=== PATIENT | male | born 1955 | race Caucasian/White ===

== ENCOUNTER → 2018-08-14 | Outpatient (CLI) | payer MEDICARE ==
[~2018-08-14] MED LIST: ALBUTEROL SULF8.5 GM INH; AMBIEN10 MG PO; DURAGESIC1 EAC1 TOP; GERD MEDICATION PO; SYMBICORT 80-10.2 GM INH
--- NOTE | 2018-08-14 14:37 | Diagnostic Imaging Report ---
MRI SPINE CERVICAL WO HISTORY: Weakness in upper extremities COMPARISON: None. TECHNIQUE: Sagittal T1, sagittal T2, sagittal inversion recovery, axial T2 and axial T1 weighted MR images of the cervical spine were obtained without intravenous contrast. DISCUSSION: Alignment: Normal lordosis. No scoliosis. Vertebrae: No definite evidence for fractures, infection, or neoplasm. Cervicomedullary junction: No abnormalities. Spinal cord: The ventral cord is mildly flattened by disc centrally at C5-C6 and on the left at C6-C7. There is questionable mild central cord T2 hyperintensity at C4-C5 and C6-C7 without cord expansion or volume loss. The cord is otherwise normal in signal and morphology from the foramen magnum through T3-T4. 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 Mild to moderate multilevel disc degeneration is most prominent at C5-C6 and C6-C7. This is superimposed on a congenitally narrow cervical spinal canal. Mild atlantoaxial arthrosis is present as well. C2-C3: Mild left foraminal stenosis due to uncovertebral and facet arthrosis. No significant canal or right foraminal stenosis. C3-C4: Moderate canal stenosis due to posterior disc osteophyte complex and ligamentum flavum thickening. Mild to moderate bilateral foraminal stenoses due to uncovertebral and facet arthrosis. C4-C5: Moderate canal stenosis due to posterior disc osteophyte complex and ligamentum flavum thickening. Moderate to severe bilateral foraminal stenoses due to uncovertebral and facet arthrosis. C5-C6: Moderate to severe canal stenosis due to posterior disc osteophyte complex and ligamentum flavum thickening. Severe bilateral foraminal stenoses due to uncovertebral and facet arthrosis. C6-C7: Moderate canal stenosis due to posterior disc osteophyte complex, eccentric to the left, and ligamentum flavum thickening. Moderate right and severe left foraminal stenoses due to uncovertebral and facet arthrosis. C7-T1: Patent canal and foramina. IMPRESSION: 1. Mild to moderate multilevel disc degeneration, most prominent at C5-C6 and C6-C7, superimposed on a congenitally narrow cervical spinal canal. 2. 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 Questionable associated mild central cord T2 hyperintensity at C4-C5 and C6-C7 may be due to minimal edema or gliosis. 3. Multilevel bilateral moderate to severe degenerative foraminal stenoses as described above. Signed by: Dr. Marc Verma M.D. on 08/14/2018 2:33 PM
== END ==
LOC: MRI 10:44
PROVIDERS: ATTEND Family Medicine
DX: R29.898 Other symptoms and signs involving the musculoskeletal system (principal); M47.812 Spondylosis without myelopathy or radiculopathy, cervical region; R20.2 Paresthesia of skin
CPT/HCPCS: 72141

== ENCOUNTER 2024-06-10 07:25 | Observation (INO) | payer BC, MEDICARE ==
[2024-06-09 09:07] LABS: BASOPHILS # (AUTO) 0.1 (0.0-0.1); BASOPHILS % 0.7 % (0.0-1.0); HEMATOCRIT 45.3 % (38.2-49.6); HEMOGLOBIN 14.7 g/dL (14.0-18.0); LYMPHOCYTES # (AUTO) 1.3 (1.0-3.2); MEAN CORPUSCULAR HEMOGLOBIN 33.3 pg (28-32); MEAN CORPUSCULAR HGB CONC 32.5 g/dL (31-35); MEAN CORPUSCULAR VOLUME 102.5 fL (81-99); MONOCYTES # (AUTO) 0.7 (0.2-0.8); MONOCYTES % 8.5 % (4.4-11.3); NEUTROPHILS # (AUTO) 5.6 (2.1-6.9); NEUTROPHILS % 73.3 % (38.7-80.0); PLATELET COUNT 181 x10e3/uL (140-360); RED BLOOD COUNT 4.42 x10e6/uL (4.3-5.7); RED CELL DISTRIBUTION WIDTH 13.5 % (11.7-14.4); WHITE BLOOD COUNT 7.69 x10e3/uL (4.8-10.8)
[2024-06-09 09:28] LABS: INR 0.91; PROTHROMBIN TIME 12.8 seconds (11.9-14.5)
[2024-06-09 09:37] LABS: ANION GAP 11.7 mmol/L (8-16); CALCIUM 8.3 mg/dL (8.4-10.2); CREATININE, SERUM 0.84 mg/dL (0.72-1.25); POTASSIUM 4.7 mmol/L (3.5-5.1)
[~2024-06-10] VITALS: Ht 182.9 cm; Wt 90.7 kg
[~2024-06-10 07:25] MED LIST changes: +BELBUCA900 MCG SL; +BREZTRI AEROS10.7 GM INH; +CRESTOR40 MG PO; +GABAPENTIN300 MG PO; +LOSARTAN POTASS25 MG PO; +METHOCARBAMOL750 MG PO; +PANTOPRAZOLE SO40 MG PO
[2024-06-10] MEDS ORDERED: KETAMINE 50MG/5ML SYR ONE (08:46)
[2024-06-10] MEDS ORDERED: ACETAMINOPHEN 1000 MG/100 ML 0 ML IV ONE (08:46)
[2024-06-10] MEDS ORDERED: LIDOCAINE HCL 2% LOCAL INJ 5 ML SDV VIAL INJ ONE (08:46)
[2024-06-10] MEDS ORDERED: FENTANYL CITRATE/PF 100MCG/2 ML INJ ONE (08:46)
[2024-06-10] MEDS ORDERED: SEVOFLURANE INHAL SOLN 250 ML PEN BTL ONE (08:46)
[2024-06-10] MEDS ORDERED: ROCURONIUM BROMIDE 1 ML IV ONE (08:46)
[2024-06-10] MEDS ORDERED: PROPOFOL IV EMULSION 10 MG/ML 20 ML VIAL ONE (08:46)
[2024-06-10] MEDS ORDERED: ONDANSETRON HCL INJ 2MG/ML 2ML 2 MG/ML VIAL ONE (08:49)
[2024-06-10] MEDS ORDERED: DEXAMETHASONE SOD PHOS INJ 4 MG/ML SDV ONE (08:49)
[2024-06-10] MEDS: LACTATED RINGER'S 1,000 ML ONE (08:57)
[2024-06-10] MEDS ORDERED: LIDOCAINE HCL (LTA) 4 ML SOLN ONE (11:25)
[2024-06-10] MEDS ORDERED: SUGAMMADEX SODIUM 200 MG/2 ML VIAL IV ONE (12:29)
[2024-06-10] MEDS ORDERED: MORPHINE SULFATE 5 MG/ML VIAL IM PRN (13:00)
[2024-06-10] MEDS ORDERED: ACETAMINOPHEN 325 MG TAB PO PRN (13:00)
[2024-06-10] MEDS ORDERED: PROMETHAZINE HCL (IM) 25 MG/ML VIAL IM PRN (13:00)
[2024-06-10] MEDS ORDERED: MAGNESIUM/ALUMINUM/SIMETHICONE 30 ML UDC PO PRN (13:00)
[2024-06-10] MEDS ORDERED: HYDROCODON-ACE1 EA12 PO (13:00)
[2024-06-10] MEDS ORDERED: ALBUTEROL SULF 0.083% NEB SOLN 3 ML NEB INH PRN (13:00)
[2024-06-10] MEDS ORDERED: ZOLPIDEM TARTRATE 5 MG TAB PO PRN (13:00)
[2024-06-10] MEDS: FENTANYL CITRATE/PF 100MCG/2 ML INJ ONE (13:30)
[2024-06-10] MEDS: CARISOPRODOL 350 MG TAB PO PRN (13:35)
[2024-06-10] MEDS: OXYCODONE/ACETAMINOPHEN 5-325 1 EACH TABLET PO PRN (13:35)
[2024-06-10 15:25] VITALS: BP 152/86; PULSE 71; RESP 18; TEMP 97.4; O2SAT 98
[2024-06-10] MEDS: LACTATED RINGER'S 1,000 ML IV SCH (15:30)
[2024-06-10] MEDS: ACETAMINOPHEN 1000 MG/100 ML 100 ML IV ONE (15:45)
[2024-06-10] MEDS: CEFAZOLIN SODIUM 2 GM ONE (15:45)
[2024-06-10] MEDS: GABAPENTIN 300 MG CAP PO SCH (16:01)
[2024-06-10] MEDS: METHOCARBAMOL 500 MG TAB PO SCH (16:01)
[2024-06-10 16:32] VITALS: PULSE 74; RESP 20; O2SAT 98
[2024-06-10] MEDS ORDERED: DEXMEDETOMIDINE HCL 200 MCG/2 ML VIAL ONE (16:42)
[2024-06-10] MEDS: HYDROMORPHONE 2MG/ML IV PRN (17:26)
[2024-06-10 18:53] VITALS: BP 157/83; PULSE 66; RESP 18; TEMP 97.8; O2SAT 94
[2024-06-10 20:00] VITALS: BP 136/73; PULSE 85; RESP 18; TEMP 97.3; O2SAT 93
[2024-06-10 20:30] VITALS: PULSE 75; RESP 18; O2SAT 98
[2024-06-11 00:33] VITALS: BP 128/66; PULSE 88; RESP 20; TEMP 98.9
[2024-06-11] MEDS: ONDANSETRON HCL INJ 2MG/ML 2ML 2 MG/ML VIAL IV PRN (01:57)
[2024-06-11 04:15] VITALS: BP 141/73; PULSE 84; RESP 18; TEMP 98; O2SAT 98
[2024-06-11 07:01] VITALS: PULSE 78; RESP 18; O2SAT 96
[2024-06-11 08:53] VITALS: BP 151/82; PULSE 89; RESP 18; TEMP 98; O2SAT 93
[2024-06-11] MEDS: CRESTOR 10MG PO SCH (08:58)
[2024-06-11] MEDS: LOSARTAN POTASSIUM 25 MG TAB PO SCH (08:58)
[2024-06-11] MEDS: PANTOPRAZOLE SOD 40 MG TABEC PO SCH (08:58)
[2024-06-11] MEDS ORDERED: NON-FORMULARY MEDICATION (Rosuvastatin Calcium (Crestor) 20 MG) PO SCH (09:00)
[2024-06-11 10:50] VITALS: BP 151/82; PULSE 89; RESP 18; TEMP 98; O2SAT 93
[2024-06-11 12:09] VITALS: BP 154/72; PULSE 73; RESP 18; TEMP 98.2; O2SAT 93
== END 2024-06-11 12:10 | disposition home or self-care (01) ==
LOC: OR 07:25 → PACU V 12:58 → MED/SURG 14:52
PROVIDERS: ADMIT Neurological Surgery; ATTEND Neurological Surgery
DX: M50.121 Cervical disc disorder at C4-C5 level with radiculopathy (principal); G56.02 Carpal tunnel syndrome, left upper limb; I10 Essential (primary) hypertension; J44.9 Chronic obstructive pulmonary disease, unspecified; Z01.810 Encounter for preprocedural cardiovascular examination; Z01.812 Encounter for preprocedural laboratory examination; Z01.818 Encounter for other preprocedural examination; M19.90 Unspecified osteoarthritis, unspecified site; I73.9 Peripheral vascular disease, unspecified
CPT/HCPCS: 20931; 22551; 22845; 36415; 64721; 71046; 76000; 80048; 85025; 85610; 85730; 86850; 86900; 88304; 88311; 93005; 94799 ×2; C1713 ×2; G0378 ×2; J0131; J0690 ×2; J1100; J1171 ×2; J2003; J2405 ×2; J2470; J2704; J3010; J7121 ×2

== ENCOUNTER → 2024-07-12 | Outpatient (REF) | payer MEDICARE ==
[~2024-07-12] MED LIST changes: +HYDROCODON-ACE1 EA12 PO
== END ==
LOC: RAD 15:45
PROVIDERS: ATTEND Neurological Surgery
DX: M50.121 Cervical disc disorder at C4-C5 level with radiculopathy (principal)
CPT/HCPCS: 72052

== ENCOUNTER → 2025-01-25 | Outpatient (REF) | payer MEDICARE | LOC: RAD 12:48 | PROVIDERS: ATTEND Neurological Surgery | DX: M50.022 Cervical disc disorder at C5-C6 level with myelopathy (principal) | CPT/HCPCS: 72052 ==